=== PATIENT | female | born 1970 | race Caucasian/White ===

== ENCOUNTER → 2016-09-25 | Outpatient (CLI) | payer OTHER | LOC: CIMAGING 11:45 | PROVIDERS: ATTEND Family Medicine | DX: M79.81 Nontraumatic hematoma of soft tissue (principal) | CPT/HCPCS: 76882-PO ==

== ENCOUNTER → 2017-05-01 | Outpatient (CLI) | payer OTHER | LOC: CIMAGING 10:59 | PROVIDERS: ATTEND Family Medicine | DX: Z12.31 Encounter for screening mammogram for malignant neoplasm of breast (principal) | CPT/HCPCS: G0202 ==

== ENCOUNTER → 2018-05-05 | Outpatient (CLI) | payer OTHER | LOC: CIMAGING 12:18 | PROVIDERS: ATTEND Family Medicine | DX: Z12.31 Encounter for screening mammogram for malignant neoplasm of breast (principal) ==

== ENCOUNTER 2018-10-13 04:00 | Observation (INO) | payer OTHER | END 2018-10-14 10:33 | disposition home or self-care (01) | LOC: F3E 06:40 ==